=== PATIENT | male | born 1995 | race Caucasian/White ===

== ENCOUNTER 2020-11-10 17:24 | Emergency (ER) | payer OTHER, SELFPAY ==
[2020-11-10 17:28] VITALS: BP 127/79; PULSE 93; RESP 14; TEMP 37; O2SAT 96; BMI 18.1
[2020-11-10 18:16] LABS: COVID19 -Nasal RAPID Negative (Negative)
--- NOTE | 2020-11-10 18:18 | DI.RAD.S_ITS ---
PROCEDURE: XR CHEST 2V INDICATIONS: fever, chills, shortness of breath TECHNIQUE: 2 views of the chest were acquired. COMPARISON: None. FINDINGS: Surgical changes and devices: None. Lungs and pleura: Lungs are clear. No pleural effusions or pneumothorax. Mediastinum: Mediastinal contours are normal. Heart size is normal. Bones and chest wall: No suspicious bony abnormalities. Soft tissues appear unremarkable. IMPRESSION: No acute cardiopulmonary pathology. Dictated by: Maurice Canada M.D. on 11/10/2020 at 17:38 Approved by: Maurice Canada M.D. on 11/10/2020 at 17:40
[2020-11-10] MEDS: KETOROLAC 60 MG/2 ML VIAL 30 MG IM (19:51)
[2020-11-10 20:38] VITALS: BP 135/76; PULSE 94; RESP 18; TEMP 37.2; O2SAT 100
[2020-11-10 20:44] LABS: Monotest Negative (Negative)
--- NOTE | 2020-11-10 20:53 | ED.FEVER ---
HPI - Fever General Chief Complaint: Fever Stated Complaint: fever, swollen lymph nodes Time Seen by Provider: 11/10/20 17:32 Source: patient Mode of arrival: Wheelchair Limitations: no limitations History of Present Illness HPI Narrative: 25M nonsmoker with noncontributory medical history presents with various symptoms over the past 4 days including a vague headache, runny nose and nasal congestion, sore throat with difficulty swallowing, tender lymph nodes, as well as cough. He's had no known exposure to COVID. He has had no measured fever, only subjective. He has had no N/V/D. He has a slight decreased appetite but is able to keep food and drink down. He has no abdominal pain. He feels unwell, tired, and fatigued. MD complaint: weakness Onset (ago): day(s) Temperature Source: subjective Associated symptoms: chills, myalgias, headache, nasal congestion, sore throat and cough Relieving factors: nothing Exacerbating factors: nothing Treatments prior to arrival fever: acetaminophen Related Data Previous Rx's Medication Instructions Recorded amoxicillin-pot clavulanate 1 tab PO BID #20 tab 11/10/20 [Augmentin] ketorolac 10 mg PO Q6H PRN #14 tab 11/10/20 Allergies Allergy/AdvReac Type Severity Reaction Status Date / Time No Known Drug Allergies Allergy Verified 11/10/20 17:33 Review of Systems Constitutional Constitutional: Reports chills, Reports fatigue, Reports fever(s), Denies frequent falls, Reports lethargy and Reports weakness Eyes Eyes: Denies change in vision, Denies eye discharge, Denies irritation and Denies loss of vision ENT Ears, Nose, Mouth, and Throat: Denies change in voice, Denies dizziness, Reports nasal congestion, Reports neck mass, Denies neck pain, Reports sore throat and Denies throat swelling Cardiovascular Cardiovascular: Denies chest pain, Denies irregular heart rhythm, Denies lightheadedness, Denies palpitations, Denies dyspnea, Denies dyspnea on exertion and Denies orthopnea Respiratory Respiratory: Reports cough, Denies dyspnea, Denies dyspnea on exertion and Denies wheezing Gastrointestinal Gastrointestinal: Denies abdominal pain, Denies change in bowel habits, Denies diarrhea, Denies nausea and Denies vomiting Musculoskeletal Musculoskeletal: Denies neck pain and Denies numbness Integumentary/Breasts Skin/Breast: Denies pruritus, Denies erythema, Denies rash and Denies wounds Neurologic Neurologic: Denies behavioral changes, Denies confusion, Denies dizziness, Denies frequent falls, Denies loss of vision, Denies numbness and Reports weakness Psychiatric Psychiatric: Denies anxiety, Denies behavioral changes, Denies confusion, Denies depression, Denies homicidal ideation and Denies suicidal ideation Endocrine Endocrine: Reports fatigue, Denies flushing and Denies palpitations Hematologic/Lymphatic Hematologic/Lymphatic: Denies easy bruising Allergic/Immunologic Allergic/Immunologic: Denies urticaria, Denies throat swelling and Denies wheezing Patient History Social History Smoking Status: Unknown if ever smoked Smoking Status: Unknown if ever smoked alcohol intake frequency: holidays/special occasions only Substance Use Type: marijuana Exam Narrative Exam Narrative: GENERAL: [25] year old patient appears stated age. Well-nourished, well-developed patient, in mild distress. Sleeping but easily arousable. Clearly not feeling well HEAD: Atraumatic. Normocephalic. EYES: Pupils equal round and reactive. Extraocular motions intact. No scleral icterus. No injection or drainage. ENT: Moist membranes. Nose without bleeding, purulent drainage. Throat erythema, tonsillar swelling, exudate on R tonsil. Airway patent. Uvula midline. No evidence of [employer] NECK: Trachea midline. L anterior tender node. CARDIOVASCULAR: Regular rate and rhythm without murmurs, gallops, or rubs. RESPIRATORY: Clear to auscultation. Breath sounds equal bilaterally. No wheezes, rales, or rhonchi. GASTROINTESTINAL: Abdomen soft, non-tender, nondistended. EXTREMITIES: No edema or joint tenderness. BACK: Nontender without deformity or crepitance. No flank tenderness. NEURO: AOx3. SKIN: No rash or erythema of visible areas Initial Vital Signs Initial Vital Signs: Vital Signs Temperature 98.6 F 11/10/20 17:28 Pulse Rate 93 H 11/10/20 17:28 Respiratory Rate 14 11/10/20 17:28 Blood Pressure 127/79 11/10/20 17:28 Pulse Oximetry 96 11/10/20 17:28 Course Orders Ordered: ED Orders 11/10/20 17:35 COVID19 Stat 11/10/20 17:49 Throat Culture Stat 11/10/20 18:18 XR chest 2V Stat 11/10/20 19:41 Monotest Stat Discontinued Medications Ketorolac Tromethamine (Ketorolac 60 Mg/2 Ml Vial) 30 mg IM NOW ONE Stop: 11/10/20 19:26 Last Admin: 11/10/20 19:51 Dose: 30 mg Documented by: MIESHA Vital Signs Vital signs: Vital Signs - 8 hr 11/10/20 20:38 Temperature 98.9 F Pulse Rate 94 H Respiratory Rate 18 Blood Pressure 135/76 Pulse Oximetry 100 MDM - Fever Lab Data Labs: Lab Results 11/10/20 11/10/20 Range/Units 17:35 19:41 SARS-CoV-2 (PCR) Negative (Negative) Monoscreen Negative (Negative) Point of Care Testing Rapid Strep A Negative MDM Narrative Medical decision making narrative: COVID and other pneumonia considered, but thought unlikely given exam, CXR, and labs. Patient not septic, no evidence of airway compromise or respiratory distress. Though Rapid strep negative patient given ABX due to concern for other bacterial source of pharyngitis such as Staph or non GABHS. [facility] considered, but thought unlikely given negative test. Return precautions given. Questions answered to his apparent satisfaction. Discharge Plan Departure Patient Disposition: Home Clinical Impression: Pharyngitis Qualifiers: Pharyngitis/tonsillitis etiology: unspecified etiology Qualified Code(s): J02.9 - Acute pharyngitis, unspecified Instructions: DI for Fever (Symptom) -- Adult Activity Restrictions/Additional Instructions: *You have been diagnosed with [ acute pharyngitis ] *What to do: *Take medications as directed *Follow up with your primary care provider in 2-3 days, call for an appointment. Let them know you were seen in the Emergency Department and that we ask that you be seen in follow up *Return to ER if you should have any new, worsening or concerning symptoms Prescriptions: New amoxicillin-pot clavulanate [Augmentin] 875-125 mg tablet 1 tab PO BID Qty: 20 RF: 0 ketorolac 10 mg tablet 10 mg PO Q6H PRN (Reason: pain) Qty: 14 RF: 0
== END 2020-11-10 20:05 | disposition home or self-care (01) ==
PROVIDERS: Emergency Medicine; Emergency Provider Emergency Medicine
DX: J02.9 Acute pharyngitis, unspecified (principal); R51.9 Headache, unspecified; R09.81 Nasal congestion; R05 Cough; R53.83 Other fatigue; Z20.822 Contact with and (suspected) exposure to COVID-19; R22.1 Localized swelling, mass and lump, neck
CPT/HCPCS: 36415; 71046; 86318; 87070; 87077; 87147; 87635; 87880; 96372; 99283; C9803; J1885

== ENCOUNTER 2020-11-12 19:21 | Emergency (ER) | payer OTHER, SELFPAY ==
[2020-11-12 19:26] VITALS: BP 129/80; PULSE 130; RESP 15; TEMP 37.3; O2SAT 100
--- NOTE | 2020-11-12 19:38 | DI.CT.S_ITS ---
PROCEDURE: CT SOFT TISSUE NECK W CON INDICATIONS: severe left neck pain and swelling, cannot swollow, trismus TECHNIQUE: After the administration of intravenous contrast, 3.0 mm axial sections acquired from the sella to the aortic arch. Additional oblique axial 3.0 mm sections acquired through the pharynx. 3 mm thick coronal and sagittal reformats were generated. For radiation dose reduction, the following was used: automated exposure control. COMPARISON: None. FINDINGS: Image quality: Excellent. Lymph nodes: Bilateral cervical adenopathy and submental adenopathy. Vessels: Visualized vasculature appears patent. Neck spaces: There is swallowing motion throughout the oropharynx but there is probably bilateral tonsillar hypertrophy with loss of the inferior parapharyngeal fat planes. A discrete abscess is not identified. There is hyperemia and enlargement of lingual lymphoid tissue. The epiglottis appears normal The oropharynx, nasopharynx, and pharynx demonstrate no mucosal lesions. Vocal cords, vallecular, and piriform sinuses appear normal. There is no retropharyngeal effusion. Glands: There is enlargement of the left submandibular gland out of proportion to the contralateral side and enlargement of both sublingual glands. Parotid glands and the thyroid gland appear normal. Miscellaneous: Visualized brain and orbits appear normal. Lung apices appear clear. Superficial soft tissues appear normal. Bones: No suspicious bony lesions. Visualized sinuses and mastoids appear unremarkable. IMPRESSION: 1. Slight asymmetric enlargement of the left submandibular gland and bulky bilateral submandibular, submental, and bilateral cervical adenopathy. 2. There is diffuse enlargement of both tonsillar pillars and of lymphoid tissue at the base the tongue. An abscess is not identified, though there is swallowing motion obscuring the tonsils. There is no response to antibiotics, repeat CT imaging may be useful. 3. No evidence of epiglottitis. Dictated by: Mariela Garcia M.D. on 11/12/2020 at 21:24 Approved by: Mariela Garcia M.D. on 11/12/2020 at 21:36
[2020-11-12 19:46] VITALS: BP 133/79
[2020-11-12 19:47] VITALS: PULSE 98; O2SAT 97
[2020-11-12 20:13] LABS: Add Manual Diff / Slide Review NO; Basophils Absolute Auto 100 /uL (0-100); Basophils Percent Auto 0.8 % (0-2); Eosinophils Absolute Auto 300 /uL (0-450); Hematocrit 40.9 % (41-53); Lymphocytes Absolute Auto 1900 /uL (1100-4500); Lymphocytes Percent Auto 24.6 % (25-40); Mean Corpuscular HGB Conc 34.1 % (30-36); Mean Corpuscular Hemoglobin 29.3 PG (26-34); Mean Corpuscular Volume 85.7 fL (80-100); Monocytes Absolute Auto 700 /uL (0-900); Monocytes Percent Auto 8.6 % (3-14); Neutrophils Absolute Auto 4800 /uL (1500-7000); Platelet Count 197 X10^3/uL (150-400); Red Blood Cell Count 4.77 X10^6/uL (4.5-5.9); Red Cell Distribution Width 12.8 % (11.6-14.8); White Blood Cell Count 7.8 X10^3/uL (4.5-11.0)
[2020-11-12] MEDS: KETOROLAC 60 MG/2 ML VIAL 15 MG IV (20:14)
[2020-11-12] MEDS: dexAMETHasone 20 MG in SODIUM CHLORIDE 0.9% 50 ML 220 ML IV (20:16)
[2020-11-12] MEDS: SODIUM CHLORIDE 0.9% 1,000 ML 1000 ML IV (20:16)
[2020-11-12 20:24] LABS: BUN Creatinine Ratio 12.5 (6-22); Blood Urea Nitrogen 8 mg/dL (9-20); Calcium 8.6 mg/dL (8.4-10.2); Carbon Dioxide 29 mmol/L (22-32); Chloride 101 mmol/L (98-107); Estimated Glomerular Filt Rate > 60.0 mL/min (>60); Glucose 123 mg/dL (70-100); HEMOLYSIS < 15 (0-50); Potassium 3.9 mmol/L (3.4-5.1); Sodium 137 mmol/L (137-145)
[2020-11-12] MEDS: AMPICILLIN/SULBACTAM 3 GM 3 GM in SODIUM CHLORIDE 0.9% 100 ML IV (20:46)
--- NOTE | 2020-11-12 20:56 | ED_ITS ---
HPI - Dental/Oral General Chief complaint: Dental/Oral Stated complaint: jaw swollen, cant close mouth, pain Time Seen by Provider: 11/12/20 19:28 Source: patient Mode of arrival: Ambulatory Limitations: no limitations History of Present Illness HPI Narrative: 25-year-old male smoker with noncontributory medical history returns with a chief complaint of worsening throat pain and swelling of his left anterior neck. He was seen and evaluated a few days ago and at that time had been having 4 days of increasing upper respiratory complaints, swollen tonsils with white exudate. Rapid strep and COVID were both negative, culture was obtained and given his convincing story and exam he was started on Augmentin. He reports that he has been having difficulty getting insurance to cover the antibiotic so he has not yet started it. He is able to eat and drink and denies drooling or having trouble controlling secretions. He has been having no trouble breathing he just complains of increasing throat pain any can not completely open his mouth because of that pain. Onset (ago): day(s) Duration: constant Relieving factors: nothing Exacerbating factors: chewing and swallowing Treatment prior to arrival: none Related Data Previous Rx's Medication Instructions Recorded amoxicillin-pot clavulanate 1 tab PO BID #20 tab 11/10/20 [Augmentin] ketorolac 10 mg PO Q6H PRN #14 tab 11/10/20 Allergies Allergy/AdvReac Type Severity Reaction Status Date / Time No Known Drug Allergies Allergy Verified 11/12/20 19:26 Review of Systems Constitutional Constitutional: Denies chills, Denies fatigue, Denies fever(s), Denies frequent falls, Denies lethargy and Denies weakness Eyes Eyes: Denies change in vision, Denies eye discharge, Denies irritation and Denies loss of vision ENT Ears, Nose, Mouth, and Throat: Reports halitosis, Denies change in voice, Reports dysphagia, Denies dizziness, Reports neck mass, Denies neck pain, Reports sore throat and Reports throat swelling Cardiovascular Cardiovascular: Denies chest pain, Denies irregular heart rhythm, Denies lightheadedness, Denies palpitations, Denies dyspnea, Denies dyspnea on exertion and Denies orthopnea Respiratory Respiratory: Denies cough, Denies dyspnea, Denies dyspnea on exertion and Denies wheezing Gastrointestinal Gastrointestinal: Denies abdominal pain, Denies change in bowel habits, Reports dysphagia, Denies diarrhea, Denies nausea and Denies vomiting Musculoskeletal Musculoskeletal: Denies neck pain and Denies numbness Integumentary/Breasts Skin/Breast: Denies pruritus, Denies erythema, Denies rash and Denies wounds Neurologic Neurologic: Denies behavioral changes, Denies confusion, Denies dizziness, Denies frequent falls, Denies loss of vision, Denies numbness and Denies weakness Psychiatric Psychiatric: Denies anxiety, Denies behavioral changes, Denies confusion, Denies depression, Denies homicidal ideation and Denies suicidal ideation Endocrine Endocrine: Denies fatigue, Denies flushing and Denies palpitations Hematologic/Lymphatic Hematologic/Lymphatic: Denies easy bruising Allergic/Immunologic Allergic/Immunologic: Denies urticaria, Reports throat swelling and Denies wheezing Patient History Social History Smoking Status: Current every day smoker Smoking Status: Current every day smoker alcohol intake frequency: holidays/special occasions only Substance Use Type: marijuana Exam Narrative Exam Narrative: GENERAL: [25] year old patient appears stated age. Well- nourished, well-developed patient, in moderate distress, obviously uncomfortable sitting upright in the triage room rubbing the left side of his face and neck HEAD: Atraumatic. Normocephalic. EYES: Pupils equal round and reactive. Extraocular motions intact. No scleral icterus. No injection or drainage. ENT: Nose without bleeding, purulent drainage. Increased pharyngeal erythema with left-sided tonsillar swelling consistent with early peritonsillar abscess. Airway patent, patient controlling secretions without difficulty NECK: Trachea midline. Tender anterior lymphadenopathy, left greater than right CARDIOVASCULAR: Regular rate and rhythm without murmurs, gallops, or rubs. RESPIRATORY: Clear to auscultation. Breath sounds equal bilaterally. No wheezes, rales, or rhonchi. GASTROINTESTINAL: Abdomen soft, non-tender, nondistended. EXTREMITIES: No edema or joint tenderness. BACK: Nontender without deformity or crepitance. No flank tenderness. NEURO: AOx3. SKIN: No rash or erythema of visible areas Initial Vital Signs Initial Vital Signs: Vital Signs Temperature 99.1 F 11/12/20 19:26 Pulse Rate 130 H 11/12/20 19:26 Respiratory Rate 15 11/12/20 19:26 Blood Pressure 129/80 11/12/20 19:26 Pulse Oximetry 100 11/12/20 19:26 Course Orders Ordered: ED Orders 11/12/20 19:38 CT soft tissue neck w con Stat 11/12/20 20:07 Basic Metabolic Panel Stat Complete Blood Count AUTO DIFF Stat Discontinued Medications Sodium Chloride (Normal Saline 0.9%) 1,000 mls @ 1,000 mls/hr IV BOLUS ONE Stop: 11/12/20 20:37 Last Infusion: 11/12/20 21:26 Dose: 0 mls/hr Documented by: Admin: 11/12/20 20:16 Dose: 1,000 mls/hr Documented by: BHASKAR Ampicillin Sodium/Sulbactam (Sodium 3 gm/ Sodium Chloride) 100 mls @ 100 mls/hr IV NOW ONE Stop: 11/12/20 19:39 Last Infusion: 11/12/20 21:26 Dose: 100 mls/hr Documented by: Admin: 11/12/20 20:46 Dose: 100 mls/hr Documented by: BHASKAR Dexamethasone 20 mg/ Sodium (Chloride) 55 mls @ 220 mls/hr IV NOW ONE Stop: 11/12/20 19:39 Last Infusion: 11/12/20 20:52 Dose: 0 mls/hr Documented by: Admin: 11/12/20 20:16 Dose: 220 mls/hr Documented by: BHASKAR Ketorolac Tromethamine (Ketorolac 60 Mg/2 Ml Vial) 15 mg IV NOW ONE Stop: 11/12/20 19:39 Last Admin: 11/12/20 20:14 Dose: 15 mg Documented by: BHASKAR Vital Signs Vital signs: Vital Signs - 8 hr 11/12/20 19:26 11/12/20 19:46 11/12/20 19:47 Temperature 99.1 F Pulse Rate 130 H 98 H Respiratory Rate 15 Blood Pressure 129/80 133/79 Pulse Oximetry 100 97 MDM - Dental/Oral Lab Data Result diagrams: 11/12/20 20:07 11/12/20 20:07 Labs: Lab Results 11/12/20 11/12/20 Range/Units 20:07 20:07 WBC 7.8 (4.5-11.0) X10^3/uL RBC 4.77 (4.5-5.9) X10^6/uL Hgb 14.0 (13.5-17.5) g/dL Hct 40.9 L (41-53) % MCV 85.7 (80-100) fL MCH 29.3 (26-34) PG MCHC 34.1 (30-36) % RDW 12.8 (11.6-14.8) % Plt Count 197 (150-400) X10^3/uL Neut % (Auto) 62.0 (50-75) % Lymph % (Auto) 24.6 L (25-40) % [place] % (Auto) 8.6 (3-14) % Eos % (Auto) 4.0 (2-4) % Baso % (Auto) 0.8 (0-2) % Neut # (Auto) 4800 (2950-2534) /uL Lymph # (Auto) 1900 (8375-7806) /uL [place] # (Auto) 700 (0-900) /uL Eos # (Auto) 300 (0-450) /uL Baso # (Auto) 100 (0-100) /uL Sodium 137 (137-145) mmol/L Potassium 3.9 (3.4-5.1) mmol/L Chloride 101 (98-107) mmol/L Carbon Dioxide 29 (22-32) mmol/L BUN 8 L (9-20) mg/dL Creatinine 0.64 L (0.66-1.25) mg/dL Estimated GFR > 60.0 (>60) mL/min BUN/Creatinine Ratio 12.5 (6-22) Glucose 123 H (70-100) mg/dL Calcium 8.6 (8.4-10.2) mg/dL Imaging Data CT Soft Tissue Neck: Radiologist's Impression: [address] [id number] Scan ReportSigned Patient: Amador Gomez CMR#: [id number]: 1995Acct:[id number]/Sex: 25 / MDate of Service: 11/12/20Loc: EDAccession Number: [id number] Procedure: CT soft tissue neck w con Ordering Provider: Luis Angel Maldonado D.O. PROCEDURE: CT SOFT TISSUE NECK W CON INDICATIONS: severe left neck pain and swelling, cannot swollow, trismus TECHNIQUE: After the administration of intravenous contrast, 3.0 mm axial sections acquired from the sella to the aortic arch. Additional oblique axial 3.0 mm sections acquired through the pharynx. 3 mm thick coronal and sagittal reformats were generated. For radiation dose reduction, the following was used: automated exposure control. COMPARISON: None. FINDINGS: Image quality: Excellent. Lymph nodes: Bilateral cervical adenopathy and submental adenopathy. Vessels: Visualized vasculature appears patent. Neck spaces: There is swallowing motion throughout the oropharynx but there is probably bilateral tonsillar hypertrophy with loss of the inferior parapharyngeal fat planes. A discrete abscess is not identified. There is hyperemia and enlargement of lingual lymphoid tissue. The epiglottis appears normal The oropharynx, nasopharynx, and pharynx demonstrate no mucosal lesions. Vocal cords, vallecular, and piriform sinuses appear normal. There is no retropharyngeal effusion. Glands: There is enlargement of the left submandibular gland out of proportion to the contralateral side and enlargement of both sublingual glands. Parotid glands and the thyroid gland appear normal. Miscellaneous: Visualized brain and orbits appear normal. Lung apices appear clear. Superficial soft tissues appear normal. Bones: No suspicious bony lesions. Visualized sinuses and mastoids appear unremarkable. IMPRESSION: 1. Slight asymmetric enlargement of the left submandibular gland and bulky bilateral submandibular, submental, and bilateral cervical adenopathy. 2. There is diffuse enlargement of both tonsillar pillars and of lymphoid tissue at the base the tongue. An abscess is not identified, though there is swallowing motion obscuring the tonsils. There is no response to antibiotics, repeat CT imaging may be useful. 3. No evidence of epiglottitis. Dictated by: Mariela Garcia M.D. on 11/12/2020 at 21:24 Approved by: Mariela Garcia M.D. on 11/12/2020 at 21:36 [facility] Narrative Medical decision making narrative: Patient with untreated strep C and evolution of symptoms with concern for early abscess. No evidence of airway compromise or trouble controlling secretions. Patient given steroids, fluids and IV antibiotics as well as pain control in the form of Toradol. CT had been completed and labs received as well as 75% of the antibiotics administered when patient decided he wanted to leave. I was unable to get in with the patient before he left, it is unclear why he decided to leave. Discharge Plan Departure Patient Disposition: Left Against Medical Advice Clinical Impression: Left against medical advice Prescriptions: No Action amoxicillin-pot clavulanate [Augmentin] 875-125 mg tablet 1 tab PO BID Qty: 20 RF: 0 ketorolac 10 mg tablet 10 mg PO Q6H PRN (Reason: pain) Qty: 14 RF: 0 Stand Alone Forms: Against Medical Advice
== END 2020-11-12 21:27 | disposition left against medical advice (07) ==
PROVIDERS: Emergency Provider Emergency Medicine
DX: R22.1 Localized swelling, mass and lump, neck (principal); R07.0 Pain in throat; R13.10 Dysphagia, unspecified
CPT/HCPCS: 36415; 70491; 80048; 85025; 96365; 96367; 96375; 99284; J0295; J1100; J1885; Q9967